=== PATIENT | female | born 1955 | race Two or more races ===

== ENCOUNTER 2025-08-14 16:08 | Emergency (ER) | payer OTHER ==
[~2025-08-14] VITALS: Ht 157.5 cm; Wt 82.6 kg
[2025-08-14] MEDS ORDERED: COZAAR50 MG (16:20)
[2025-08-14] MEDS ORDERED: HYDROCHLOROTH12.5 MG (16:20)
[2025-08-14] MEDS ORDERED: LIPITOR40 M1 (16:21)
[2025-08-14] MEDS ORDERED: LANTUS SOL100 UNIT/1 (16:21)
[2025-08-14] MEDS ORDERED: JENTADUETO 2.51 EAC2 (16:21)
[2025-08-14] MEDS ORDERED: HUMALOG100 UNIT/2 (16:21)
[2025-08-14] MEDS ORDERED: VAZALORE81 MG (16:22)
[2025-08-14] MEDS ORDERED: PLAVIX75 MG (16:22)
[2025-08-14] MEDS ORDERED: ARICEPT5 MG (16:22)
[2025-08-14] MEDS ORDERED: NEURONTIN300 MG (16:22)
[2025-08-14] MEDS ORDERED: ISOSORBIDE DINI30 MG (16:22)
[2025-08-14] MEDS ORDERED: FERROCITE324 MG (16:23)
[2025-08-14] MEDS ORDERED: DULCOLAX5 MG (16:23)
[2025-08-14 17:06] LABS: BASO % 0.6 % (0.1-1.2); EOS # 0.09 (0.04-0.54); EOS % 0.9 % (0.7-7.0); LYMPH # 1.62 (1.18-3.74); LYMPH % 16.4 % (19.3-53.1); MEAN PLATELET VOLUME 9.90 fl (9.4-12.4); MONO # 0.75 (0.24-0.82); MONO % 7.6 % (4.7-12.5); NEUT # 7.34 (1.56-6.13); NEUT % 74.2 % (34.0-71.1); RED CELL DISTRIBUTION WIDTH 18.3 % (11.6-14.4)
[2025-08-14 17:33] LABS: INR 1.04
[2025-08-14 17:52] LABS: URINE APPEARANCE Clear; URINE BILIRRUBIN Negative (NEGATIVE); URINE BLOOD Negative; URINE COLOR Dark Yellow; URINE GLUCOSE Negative (NEGATIVE); URINE KETONE Trace (NEGATIVE); URINE LEUKOCYTE Small; URINE NITRATE Negative; URINE PROTEIN Trace (NEGATIVE); URINE UROBILINOGEN 1.0 E.U./dl
[2025-08-14 17:55] LABS: ALT/SGPT 31.0 U/L (12-78); AST/SGOT 39.0 U/L (15-37); BILIRUBIN TOTAL 0.66 mg/dL (0.3-1.2); BUN CREA RATIO 21.0 (7.0-25.0); CREATININE SERUM 0.9 mg/dL (0.55-1.02); GFR 61.55; GLOBULINA 4.1 G/DL (2.4-3.5); OSMOLALITY SERUM 286.0 MOSM/KG (275-295)
[2025-08-14 17:56] LABS: URINE BACTERIA 2241.6 uL (0.0-1933); URINE CAST 2.05 uL (0.0-1.40); URINE EPITHELIAL CELLS 37.2 uL (0.0-38.8); URINE RBC 13.0 uL (0.0-20.8); URINE WBC 109.8 uL (0.0-23.2)
[2025-08-14 17:56] LABS: GLUCOSE FASTING 219.0 mg/dL (65-100)
[2025-08-14] MEDS ORDERED: BACTRIM DS TAB1 EACH PO (19:44)
[2025-08-14] MEDS ORDERED: STOOL SOFTENER50 MG PO (19:44)
[2025-08-14] MEDS ORDERED: PEPCID AC20 MG PO (19:44)
== END 2025-08-14 20:06 | disposition home or self-care (01) ==
LOC: ER 16:08
PROVIDERS: General Practice
DX: D64.9 Anemia, unspecified (principal); E11.9 Type 2 diabetes mellitus without complications; Z79.84 Long term (current) use of oral hypoglycemic drugs; K57.90 Diverticulosis of intestine, part unspecified, without perforation or abscess without bleeding; I70.8 Atherosclerosis of other arteries; I10 Essential (primary) hypertension; Z91.013 Allergy to seafood; Z88.8 Allergy status to other drugs, medicaments and biological substances; Z87.09 Personal history of other diseases of the respiratory system; Z85.43 Personal history of malignant neoplasm of ovary; Z85.42 Personal history of malignant neoplasm of other parts of uterus